=== PATIENT | female | born 1940 | race Caucasian/White ===

== ENCOUNTER 2022-02-12 12:56 | Outpatient (REF) | payer MEDICARE, SELFPAY ==
[2022-02-12 15:10] LABS: Basophils Percent Auto 0.6 % (0-2); Eosinophils Absolute Auto 0.1 X10*3/uL (0.0-0.4); Eosinophils Percent Auto 0.9 % (0-4); Hematocrit 42.4 % (37.0-47.0); Hemoglobin 14.1 g/dl (12.0-16.0); Imm Gran Abs Auto 0.01 X10*3/uL (0.00-0.03); Imm Gran Pct Auto 0.2 % (0.0-0.4); Lymphocytes Absolute Auto 1.9 X10*3/uL (1.2-4.9); Lymphocytes Percent Auto 34.3 % (20-40); MANUAL DIFF FLAG NO; Mean Corpuscular HGB Conc 33.3 g/dl (31.0-35.0); Mean Corpuscular Volume 87.1 fL (80.0-98.0); Mean Platelet Volume 10.6 fL (9.4-12.3); Monocytes Absolute Auto 0.6 X10*3/uL (0.1-1.2); Monocytes Percent Auto 10.5 % (2-11); Neutrophils Absolute Auto 2.9 x10*3/uL (2.0-8.3); Neutrophils Percent Auto 53.5 % (45-73); Platelet Count 211 X10*3/uL (160-400); Red Blood Count 4.87 X10*6/uL (4.20-5.50); Red Cell Distribution Width 14.1 % (11.0-16.0); White Blood Count 5.4 X10*3/uL (4.8-10.8)
[2022-02-12 15:53] LABS: Erythrocyte Sedimentation Rate 23 MM/HR (0-20)
[2022-02-17 17:26] LABS: Cyclic Citrullinated Peptide <16 UNITS
== END 2022-02-12 12:57 | disposition home or self-care (01) ==
LOC: HO.LAB 12:56
PROVIDERS: PCP Internal Medicine; Visit Provider Student in an Organized Health Care Education/Training Program
DX: M19.012 Primary osteoarthritis, left shoulder (principal); M19.011 Primary osteoarthritis, right shoulder; G89.29 Other chronic pain; R70.0 Elevated erythrocyte sedimentation rate; Z79.899 Other long term (current) drug therapy; Z96.611 Presence of right artificial shoulder joint
CPT/HCPCS: 36415; 85025; 85652; 86200; 99202

== ENCOUNTER → 2022-02-26 13:30 | Outpatient (BNVA) | payer MEDICARE, SELFPAY | PROVIDERS: PCP Internal Medicine; Visit Provider Student in an Organized Health Care Education/Training Program | DX: M25.511 Pain in right shoulder (principal); M25.512 Pain in left shoulder; G89.29 Other chronic pain | CPT/HCPCS: 99212 ==

== ENCOUNTER 2023-09-14 13:20 | Outpatient (AMB) | payer MEDICARE, SELFPAY ==
--- NOTE | 2023-09-14 13:36 | MHC.OFFVIS ---
Intake Vital Signs 09/14/23 13:53 Height 5 ft 3 in Weight 162 lb 6 oz BMI 28.8 BP 132/70 Blood Pressure Location Lt brachial Position Sitting Pulse 60 Pulse Source Pulse Oximeter Pulse Oximetry (%) 96 Oxygen Delivery Method Room Air Intake Visit Reasons: E-ANESTHESIOLOGY FACULTY: Recent Stroke/ ? Embolic-Conf Intake Note: Patient presents for recent stroke. Wondering where the blood clot came from. Allergies latex Adverse Reaction (Intermediate, Verified 09/14/23 13:44) Rash PFSH Medical History (Updated 09/14/23 @ 13:52 by Melisa Johnson CMA) Pacemaker Dyslipidemia Hypertension Breast cancer Surgical History H/O mammogram Hx of total knee replacement History of total hysterectomy with bilateral salpingo-oophorectomy (BSO) H/O shoulder surgery H/O foot surgery H/O total mastectomy of right breast Family History Mother Cataract Coronary artery disease Breast cancer Father Coronary artery disease Brother Colon cancer Sister Hx of CABG Social History Household Members Other:: lives alone Housing: House Are you a primary manager intensive care unit to a significant other at home: No Do you presently have visiting nurse or other home services: Yes (Light towel sewer, meals on wheels) 75 years or older and lives alone: Yes Alcohol intake: never Patient Tobacco Use Status: Never used Tobacco e-Cigarette/Vaping Use: Never Used service: No Current occupational status: retired 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
[2023-09-14 13:53] VITALS: BP 132/70; PULSE 60; O2SAT 96; BMI 28.8
--- NOTE | 2023-09-14 13:59 | MHC.OFFVIS ---
Intake Vital Signs 09/14/23 13:53 Height 5 ft 3 in Weight 162 lb 6 oz BMI 28.8 BP 132/70 Blood Pressure Location Lt brachial Position Sitting Pulse 60 Pulse Source Pulse Oximeter Pulse Oximetry (%) 96 Oxygen Delivery Method Room Air Intake Visit Reasons: E-JEWELRY POLISHER: Recent Stroke/ ? Embolic-Conf Allergies latex Adverse Reaction (Intermediate, Verified 09/14/23 13:44) Rash HPI HPI Comments History of Present Illness Details handed 83-yr-old female presents for neurological evaluation. Pt had [facility] admission May 13- May 16, 2023. Per PCP note, pt had a 3 hr period of global amnesia, feeling not right, felt like she would pass out. CTA Head and Neck- showed no significant stenosis Echocardiogram showed EF 55-65% and mild aortic stenosis. Brain MRI w/o showed: 1. several punctate foci of acute/subacute ischemia are seen in the supratentorial brain, bilateral cerebellum, and most prominently in the left thelma. Distribution suggests embolic etiology. 2. Otherwise, scattered foci of T2 signal abnormality in the supratentorial white matter and patchy T2 signal abnormality in the thelma is most likely related to chronic microvascular ischemic change. Labs- 05/14/23 04:16 Cholesterol 142 Triglycerides 56 HDL Cholesterol 56 LDL Cholesterol 75 Non HDL Cholestero l 86 Her symptoms resolved during her hospital stay. 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 Was discharged on Plavix and ASA and advised to have 30-day holter. She had another [facility] ER veal in early May- had occipital to frontal head pain. Dx was migraine. She denies h/o migraine, but thinks maybe it was d/t her chronic neck tightness and cervical spinal stenosis. Head CT showed no acute findings, single small lacunar infarcts bilaterally which is old and stable left sphenoid sinus disease. Head and Nect CTA- shows no significant stenosis Had Holter Monitor in Jun 2023- detected a-fib, and was then evaluated in [facility] ER. She was started on Eliquis. Has since had pacemaker implant. Pt is now being f/b [facility], [facility] and [facility] clinics- has f/u appt pending. Since those hospitalization, pt states she is feeling better. She had home NSG, PT- which just stopped. Pt lives at home alone, has family support. Patient also endorses: Occasional head tremor Right 5th-4th finger numbness- pt states s/p right mastectomy, right axilla radiation (2011), and/or right shoulder repair, BUE upper arm acheness. Chronic neck, back, joint arthritic pain. Some numbness and tingling in her toes- she attributes this to arthritis- her mother had this too. She has difficulty walking- balance is off, needs to use a walker. Too unsteady to use a cane. Has some urinary incontinence- mostly urge incontinence. She sleeps well. Not sure if she snores. May take a cat nap during the day. Denies nocturnal gasping, SOB, chest pain. She has some STM difficulties- has to write things down- which helps. Denies repeating herself. May forget where she put something. Pays her own bills. Has meals on wheels for lunches. She has not been driving. She manages her own medications. Her family helps w/ grocery shopping. And patient denies: Weakness. [facility] Medical History (Updated 09/27/23 @ 13:47 by REE Garcia) GERD (gastroesophageal reflux disease) Osteoporosis Depression Pacemaker Dyslipidemia Hypertension Breast cancer Surgical History H/O mammogram Hx of total knee replacement History of total hysterectomy with bilateral salpingo-oophorectomy (BSO) H/O shoulder surgery H/O foot surgery H/O total mastectomy of right breast Family History Mother Cataract Coronary artery disease Breast cancer Father Coronary artery disease Brother Colon cancer Sister Hx of CABG Social History Household Members Other:: lives alone Housing: House Are you a primary animal care specialist to a significant other at home: No Do you presently have visiting nurse or other home services: Yes (Light e tailer, meals on wheels) 75 years or older and lives alone: Yes Alcohol intake: never Patient Tobacco Use Status: Never used Tobacco e-Cigarette/Vaping Use: Never Used service: No Current occupational status: retired 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 Mild intermittent head tremor. Mild posterior cervical tightness. Negative pronator drift- in right arms, fingers abduct during testing. Negative- BUE Tinnel, Phalen, Medial compression tests. Stands slowly, steady gait w/ walker. General: CN's II-XI intact bilaterally and deep tendon reflexes 2+ bilaterally Cranial nerves: Yes Bilaterally intact EOM present and Yes Nystagmus not present Motor exam (neuro): 5/5 motor strength present throughout Psych Appearance: grossly normal Mental Status: mental status grossly normal Affect: normal affect Attitude: cooperative Results Reviewed Results Reviewed: 05/14/23, ?MRI Brain W/O Contrast MRI Brain W/O Contrast INDICATION: Visual impairment. TECHNIQUE: MRI of the brain was performed without contrast utilizing sagittal T1, axial T2, axial FLAIR, axial SWAN, and axial DWI sequences. COMPARISON: CT head and CTA of the head and neck, 05/13/2023. FINDINGS: BRAIN and EXTRA-AXIAL SPACES: Punctate foci restricted diffusion are seen in the subcortical white matter of the left occipital pole, lateral right temporal lobe, left caudate head, and most prominently in the left anterior thelma. A few foci are also seen in both cerebellar hemispheres. Otherwise, there is prominence of the ventricles and sulci compatible with age-appropriate volume loss. Multiple scattered foci of T2 prolongation are seen elsewhere in the supratentorial white matter. Prominent patchy T2 prolongation is also seen in the central thelma. There is no hemorrhage, midline shift, or mass effect. No extra collection is seen. Flow voids are preserved in the dominant intracranial vessels. EXTRACRANIAL SOFT TISSUES: There have been lens replacements bilaterally. There is complete opacification of the left sphenoid sinus. Fluid is seen in the bilateral mastoid air cells, left greater than right. BONES: Marrow signal is preserved. IMPRESSION: 1. Several punctate foci of acute/subacute ischemia are seen in the supratentorial brain, bilateral cerebellum, and most prominently in the left thelma. Distribution suggests embolic etiology. 2. Otherwise, scattered foci of T2 signal abnormality in the supratentorial white matter and patchy T2 signal abnormality in the thelma is most likely related to chronic microvascular ischemic change. Assessment & Plan Assessment & Plan (1) History of CVA (cerebrovascular accident): Comment: Apr 2023- Brain MRI several punctate foci of acute/subacute ischemia are seen in the supratentorial brain, bilateral cerebellum, and most prominently in the left thelma. As well as chronic microvascular ischemic change Code(s): Z86.73 - Personal history of transient ischemic attack (TIA), and cerebral infarction without residual deficits (2) Atrial fibrillation: Code(s): I48.91 - Unspecified atrial fibrillation (3) Difficulty balancing: Code(s): R29.818 - Other symptoms and signs involving the nervous system Plan Reviewed PCP and [facility] reports and imaging. Reviewed how a-fib increases risk for embolic stroke. BP currently normotensive. Lipids- WNL Discussed importance of continuing to optimize/reduce her CV risk factors: Continue current anti-HTN regimen, BB, Eliqis, statin tx. F/u w/ cardiology. Continue regular physical activity. Use walker per PT advise- selina as pt is now on Eliquis. Continue socialization and cognitively stimulating activities. Pt has low risk factors for sleep apnea, however offered sleep study to assess for undiagnosied sleep apnea as this can be a/w a-fib and stroke risk. Pt declines at this time. Monitor headache Follow-up in 6 months or sooner. Coding Level of Care Code New Pt Level 4 (45745) Diagnoses History of CVA (cerebrovascular accident) Z86.73 Atrial fibrillation I48.91 Difficulty balancing R29.818
== END 2023-09-14 14:54 | disposition home or self-care (01) ==
PROVIDERS: PCP Internal Medicine; Visit Provider Nurse Practitioner Family
DX: Z86.73 Personal history of transient ischemic attack (TIA), and cerebral infarction without residual deficits (principal); I48.91 Unspecified atrial fibrillation; R29.818 Other symptoms and signs involving the nervous system
CPT/HCPCS: 99204

== ENCOUNTER → 2023-09-14 13:20 | Outpatient (BNVA) | payer MEDICARE, SELFPAY | PROVIDERS: PCP Internal Medicine; Visit Provider Nurse Practitioner Family | DX: I48.91 Unspecified atrial fibrillation (principal); R29.818 Other symptoms and signs involving the nervous system; Z86.73 Personal history of transient ischemic attack (TIA), and cerebral infarction without residual deficits | CPT/HCPCS: 99202 ==

== ENCOUNTER 2024-09-14 14:20 | Outpatient (AMB) | payer MEDICARE, SELFPAY ==
--- NOTE | 2024-09-14 14:22 | A.OFFVIS_ITS ---
Vital Signs 09/14/24 14:24 Height 5 ft 3 in Weight 163 lb BMI 28.9 BP 126/74 Blood Pressure Location Rt brachial Position Sitting Intake Visit Reasons: Follow up Recent Stroke/? Embolic Intake Note: Patient presents follow up CVA Allergies latex Adverse Reaction (Intermediate, Verified 09/14/24 14:25) Rash Medication List - Last Reconciled 09/14/24 by REE Garcia acetaminophen (Tylenol Extra Strength) 1,000 mg PO BID amlodipine 5 mg PO DAILY amlodipine 5 mg PO DAILY amoxicillin 1,000 mg PO BID apixaban (Eliquis) 5 mg PO BID calcium carbonate-vitamin D3 600 mg-10 mcg (400 unit) (Calcium 600 + D(3)) 1 tab PO BID famotidine 20 mg PO BID levothyroxine 50 mcg PO DAILY metoprolol tartrate 50 mg PO DAILY uilitaxm-sqm-abea-FA-vit K-lut 8 mg iron-400 mcg-50 mcg (Centrum Silver Women) 1 tab PO DAILY omeprazole 20 mg PO DAILY simvastatin 20 mg PO DAILY venlafaxine 75 mg PO DAILY venlafaxine ER 75 mg PO DAILY vitamins A,C,N-siem-dspurv 2,148 mcg-113 mg-45 mg-17.4mg (PreserVision AREDS) 1 tab PO DAILY HPI Comments Details: Right-handed 83-yr-old female presents for follow-up s/p CVA in setting of a- fib. Patient denies any significant interval history changes. Reports her metoprolol dose was increased to mange her BP- which is normotensive. She is followed by cardiology. Patient denies any interval stroke-like symptoms. Pt denies falls. States she can be off-balance at times, briefly, but taking her time, and using her walker, cane , or walks with someone. Doing some exercises. States her memory is ok. States she is able to manage her finances ok. She has resumed driving, just short distances to the pharmacy and grocery store- someone is usually w/ her. no near accidents. BUE chronic achiness, RUE 5th finger numbness s/p right shoulder repair. Sleeping ok- some nocturia, but denies parasomnias. Denies bothersome headaches- has an occasional ocular migraine lasts minutes w/o headache- just has to sit and close her eyes and relaxes and they self resolve. Denies head tremor. Denies other tremor. Does endorse chronic arthritis and right 3rd finger tightness/sustained flexion. 09/14/2023 initial HPI: Pt had [facility] admission May 13- May 16, 2023. Per PCP note, pt had a 3 hr period of global amnesia, feeling not right, felt like she would pass out. CTA Head and Neck- showed no significant stenosis Echocardiogram showed EF 55-65% and mild aortic stenosis. Brain MRI w/o showed: 1. several punctate foci of acute/subacute ischemia are seen in the supratentorial brain, bilateral cerebellum, and most prominently in the left thelma. Distribution suggests embolic etiology. 2. Otherwise, scattered foci of T2 signal abnormality in the supratentorial white matter and patchy T2 signal abnormality in the thelma is most likely related to chronic microvascular ischemic change. Labs- 05/14/23 04:16 Cholesterol 142 Triglycerides 56 HDL Cholesterol 56 LDL Cholesterol 75 Non HDL Cholesterol 86 Her symptoms resolved during her hospital stay. 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 Was discharged on Plavix and ASA and advised to have 30-day holter. She had another [facility] ER veal in early May- had occipital to frontal head pain. Dx was migraine. She denies h/o migraine, but thinks maybe it was d/t her chronic neck tightness and cervical spinal stenosis. Head CT showed no acute findings, single small lacunar infarcts bilaterally which is old and stable left sphenoid sinus disease. Head and Nect CTA- shows no significant stenosis Had Holter Monitor in Jun 2023- detected a-fib, and was then evaluated in [facility] ER. She was started on Eliquis. Has since had pacemaker implant. Pt is now being f/b [facility], [facility] and [facility] clinics- has f/u appt pending. Since those hospitalization, pt states she is feeling better. She had home NSG, PT- which just stopped. Pt lives at home alone, has family support. Patient also endorses: Occasional head tremor Right 5th-4th finger numbness- pt states s/p right mastectomy, right axilla radiation (2011), and/or right shoulder repair, BUE upper arm acheness. Chronic neck, back, joint arthritic pain. Some numbness and tingling in her toes- she attributes this to arthritis- her mother had this too. She has difficulty walking- balance is off, needs to use a walker. Too unsteady to use a cane. Has some urinary incontinence- mostly urge incontinence. She sleeps well. Not sure if she snores. May take a cat nap during the day. D enies nocturnal gasping, SOB, chest pain. She has some STM difficulties- has to write things down- which helps. Denies repeating herself. May forget where she put something. Pays her own bills. Has m eals on wheels for lunches. She has not been driving. She manages her own medications. Her family helps w/ grocery shopping. And patient denies: Weakness. [facility] Medical History (Updated 09/14/24 @ 20:30 by REE Garcia) GERD (gastroesophageal reflux disease) Osteoporosis Depression Pacemaker Dyslipidemia Hypertension Breast cancer Surgical History H/O mammogram Hx of total knee replacement History of total hysterectomy with bilateral salpingo-oophorectomy (BSO) H/O shoulder surgery H/O foot surgery H/O total mastectomy of right breast Family History Mother Cataract Coronary artery disease Breast cancer Father Coronary artery disease Brother Colon cancer Sister Hx of CABG Social History Household Members Other:: lives alone Housing: House Are you a primary animal care assistant to a significant other at home: No Do you presently have visiting nurse or other home services: Yes (Light heading and priming tool setter, meals on wheels) 75 years or older and lives alone: Yes Alcohol intake: never Patient Tobacco Use Status: Never used Tobacco e-Cigarette/Vaping Use: Never Used service: No Current occupational status: retired 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 Mild intermittent right 5th finger postural tremor. Archana hand arthritic changes- right 3rd finger tightness/flexion. Mild posterior cervical tightness. Negative pronator drift Stands slowly, steady gait w/ cane General: CN's II-XI intact bilaterally and deep tendon reflexes 2+ bilaterally Cranial nerves: Yes Bilaterally intact EOM present and Yes Nystagmus not present Motor exam (neuro): 5/5 motor strength present throughout Psych Appearance: grossly normal Mental Status: mental status grossly normal Affect: normal affect Attitude: cooperative Assessment & Plan Assessment & Plan (1) History of CVA (cerebrovascular accident): Comment: Apr 2023- Brain MRI several punctate foci of acute/subacute ischemia are seen in the supratentorial brain, bilateral cerebellum, and most prominently in the left thelma. As well as chronic microvascular ischemic change Code(s): Z86.73 - Personal history of transient ischemic attack (TIA), and cerebral infarction without residual deficits Category: Medical (2) Atrial fibrillation: Code(s): I48.91 - Unspecified atrial fibrillation Category: Medical (3) Difficulty balancing: Comment: improved Code(s): R29.818 - Other symptoms and signs involving the nervous system Category: Medical Plan Pt has made positive gains. Discussed importance of continuing to optimize/reduce her CV risk factors: BP currently normotensive. Continue current anti-HTN regimen, BB, Eliqis, statin tx. F/u w/ cardiology. Continue regular physical activity. Use cane and walker.. Continue socialization and cognitively stimulating activities. Pt continues to deny snoirng, sleep behaviors- pt is not currently interested in furtehr assessing sleep. Monitor sleep- consider HST/PSG if worsens. Monitor migraine visual aura w/o headache. Monitor head tremor Follow-up in 12 months or sooner prn. Coding Level of Care Code Est Pt Level 4 (74733) Diagnoses History of CVA (cerebrovascular accident) Z86.73 Atrial fibrillation I48.91 Difficulty balancing R29.818
[2024-09-14 14:24] VITALS: BP 126/74; BMI 28.9
--- OUTSIDE RECORDS SUMMARY | 2024-09-14 15:50 | XMS_ITS | Clinical Summary ---
Author Organization [facility] Address [address] [place] [address] Care Team Providers Care Automatic Trimming Sewer Name Role Phone Krissy Guardado MD Primary Care Provider [phone] Allergies Active Allergy Reactions Criticality Noted Date Comments Latex 04/20/2017 Medications Medication Sig Dispensed Refills Start Date End Date Status acetaminophen (TYLENOL) 325 MG tablet Take 2 tablets (650 mg total) by mouth every 6 (six) hours as needed for pain. 0 Active amLODIPine (NORVASC) tablet 5 mg Take 1 tablet (5 mg total) by mouth daily. 0 Active simvastatin (ZOCOR) tablet 20 mg Take 1 tablet (20 mg total) by mouth every night at bedtime. 0 Active venlafaxine (EFFEXOR-XR) 150 MG 24 hr capsule Take 1 capsule (150 mg total) by mouth daily. 0 Active levothyroxine (SYNTHROID, LEVOXYL) tablet 50 mcg Take 1 tablet (50 mcg total) by mouth every morning on an empty stomach. 0 Active metoprolol succinate (TOPROL-XL) 24 hr tablet 50 mg Take 1 tablet (50 mg total) by mouth daily. 0 Active omeprazole (PRILOSEC) 20 MG capsule Take 1 capsule (20 mg total) by mouth daily. 0 Active Multiple Vitamin (MULTI VITAMIN DAILY PO) Take by mouth. 0 Active CALCIUM-VITAMIN D PO Take by mouth daily. 0 Active metoprolol tartrate (LOPRESSOR) 50 MG tablet Take 1 tablet (50 mg total) by mouth 2 (two) times a day. Take 1 tablet 50mg in the morning and 25mg in evening 0 Active AMOXICILLIN PO Take by mouth. For dental work only 0 Active Multiple Vitamins-Minerals (PRESERVISION AREDS PO) Take by mouth daily. 0 Active apixaban (ELIQUIS) 5 MG TABS tablet Take by mouth every 12 (twelve) hours. 0 Active famotidine (PEPCID) 20 MG tablet Take 1 tablet (20 mg total) by mouth 2 (two) times a day. 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, estrogen receptor positive 04/30/2017 Rotator cuff tear 04/08/2016 Overview: Overview: right Bunion of great toe 09/12/2015 PVD (peripheral vascular disease) 09/12/2015 Hypothyroidism 06/03/2015 Radiculitis, cervical 12/02/2010 History of endometrial cancer 10/24/2009 Overview: Overview: Status post hysterectomy and BSO over 5 years ago no evidence of recurrence HTN (hypertension), benign 10/24/2009 Hyperlipidemia 10/24/2009 MDD (major depressive disorder) 10/24/2009 Overview: Overview: Presently well controlled Total knee replacement status 10/24/2009 Overview: Overview: Right knee 01/27; left 08/28 Family History Medical History Relation Name Comments Cancer Brother 1 Suicidality Brother 1 Cancer Brother 2 colon Cancer Mother breast Relation Name Status Comments Brother 1 Brother 2 Brother 3 Alive Father Mother Social History Tobacco Use Types Packs/Day Years Used Date Smoking Tobacco: Never Smokeless Tobacco: Never Alcohol Use Standard Drinks/Week Comments Yes 0 (1 standard drink = 0.6 oz pur e alcohol) Sex and Gender Information Value Date Recorded Sex Assigned at Not on file Gender Identity Not on file Sexual Orientation Not on file Job Start Date Occupation Industry Not on file Not on file Not on file Last Filed Vital Signs Vital Sign Reading Time Taken Comments Blood Pressure 129/60 09/02/2023 1:16 PM EDT Pulse 59 09/02/2023 1:16 PM EDT Temperature 36.5 ??C (97.7 ??F) 09/02/2023 1:16 PM ED T Respiratory Rate - - Oxygen Saturation 99% 09/02/2023 1:16 PM EDT Inhaled Oxygen Concentration - - Weight 73 kg (161 lb) 09/02/2023 1:16 PM EDT Height 160 cm (5' 3 ) 07/03/2020 1:47 PM EST Body Mass Index 28.52 07/03/2020 1:47 PM EST Plan of Treatment Health Maintenance Due Date Last Done Comments COVID-19 Vaccine (#1) 02/20/1945 Depression Screening 1951 Preventative Health Evaluation 1957 DTap / Tdap / Td (1 - Tdap) 1958 Shingrix-Zoster Vaccine (1 of 2) 1958 Fall Risk Assessment 02/20/2004 Osteoporosis Screening (DEXA Scan) 02/20/2004 RSV Adult > 60+ Yrs or (1 - 1-dose 75+ series) 2014 Influenza Vaccine (#1) 2024 , 03/10/2022, 03/17/2021, Additional history exists Pneumococcal Vaccine Completed 06/03/2015, 04/02/20 10 Hepatitis B Vaccines Aged Out No long er eligible based on patient's age to complete this topic RSV Ped < 20 months Aged Out No longe r eligible based on patient's age to complete this topic Care Teams Automatic Trimming Sewer Relationship Specialty Start Date End Date Krissy Guardado MD PCP - General Internal Medicine 04/20/17
--- OUTSIDE RECORDS SUMMARY | 2024-09-14 15:50 | XMS_ITS | Encounter Summary ---
Author Organization [facility] Address [address] [place] [address] Care Team Providers Care Industrial Court Magistrate Name Role Phone Krissy Guardado MD Primary Care Provider [phone] Encounter Details Date Type Department Care Team (Late st Contact Info) Description 08/15/2024 Telephone [facility] - [facility] [address] [facility] [address] [place] [address] Paige Watkins PA [address] [place] [address] Social History Tobacco Use Types Packs/Day Years Used Date Smoking Tobacco: Never Smokeless Tobacco: Never Alcohol Use Standard Drinks/Week Comments No 0 (1 standard drink = 0.6 oz pur e alcohol) Housing Instability Answer Date Recorde d Are you worried that in the next 2 months you may not have stable housing? No 05/01/2024 Food Access & Nutrition Answer Date Rec orded Do you have access to a vari ety of food including fruits and vegetables? Yes 05/01/2024 Access to Healthcare Answer Date Record ed Within the last 3 months, ho w many times did you visit the emergency department for your medical care? 0 05/01/2024 Health Literacy Answer Date Recorded How often do you need to hav e someone help you when you read instructions, pamphlets, or other written material from your doctor or pharmacy? Never 05/01/2024 Caregiver: How often do you need to have someone help you when you read instructions, pamphlets, or other written material from your doctor or pharmacy? Not on file 05/01/2024 Financial Risk Answer Date Recorded How hard is it for you to pa y for the very basics like food, housing, medical care, and air conditioning / heating? Somewhat hard 05/01/2024 Transportation Answer Date Recorded Has the lack of transportati on kept you from meetings, work, or from getting things needed for daily living? No Has the lack of transportati on kept you from medical appointments or from getting medications? No 05/01/2024 Social Isolation Answer Date Recorded How often do you feel lonely or isolated from th ose around you? Rarely 05/01/2024 Food Risk Answer Date Recorded Within the past 12 months we worried whether our food would run out before we got money to buy more. Never true 05/01/2024 Within the past 12 months th e food we bought just didn't last and we didn't have money to get more. Never true 05/01/2024 Dependent Care Answer Date Recorded Do you need help finding or paying for care for your loved ones. For example, child care coordinator or elderly care for an older adult? No 05/01/2024 Education Answer Date Recorded Do you think completing more education or training, like finishing a GED, going to college, or learning a trade, would be helpful for you? No 05/01/2024 Employment and Income Answer Date Recor ded During the last four weeks, have you been actively looking for work? No 05/01/2024 Living Situation Answer Date Recorded What is your living situation? 1 07/01/2023 Comments Unknown Sex and Gender Information Value Date Recorded Sex Assigned at Not on file Legal Sex Female 3:34 PM EST Gender Identity Not on file Sexual Orientation Not on file documented as of this encounter Progress Notes * MEDINA Bush - 08/15/2024 10:49 AM EST See MURJ encounter titled Ancillary Procedure, report may be found under media, dated: Current egm - afib ongoing since 08/13 - rate controlled Prior episodes - A-fib 3 hours and 20 minutes on July 31 at 3:50 AM, 3 hours and 18 minutes August 02 at 3 AM Patient is anticoagulated for stroke reduction-Eliquis 5 mg twice daily Any plan for rhythm control? If not we will only report RVR. Please let device clinic know. documented in this encounter Plan of Treatment Upcoming Encounters Date Type Department Care Team (Late st Contact Info) Description 10/05/2024 1:45 PM EDT Office Visit Orthopedic Surgery - [place] [address] [facility] [address] [place] [phone] Delroy Villarreal, DPMichelle 175 [facility] [address] [place] [address] 10/23/2024 1:00 PM EDT Appointment Radiology Department - [address] [phone] 11/01/2024 2:15 PM EDT Office Visit Adult Medicine [address] [phone] Krissy Guardado MD [address] [place] [address] 03/20/2025 1:30 PM EDT Office Visit [facility] [address] [place] [address] Michael Teran MD [address] [place] [address] [address] [place] [address] 08/09/2025 1:00 PM EST Ancillary Procedure [facility] [address] [place] [phone] documented as of this encounter Visit Diagnoses Not on filedocumented in this encounter Additional Health Concerns Assessment Noted Time PHQ-9 Depression Total Score: 0 05/01/20 3:36 PM EST A fall risk assessment has been complete d for the patient 05/01/2024 3:32 PM EST documented as of this encounter Care Teams Industrial Court Magistrate Relationship Specialty Start Date End Date Krissy Guardado MD [address] [place] [address] PCP - General Internal Medicine 02/25/15 documented as of this encounter
--- OUTSIDE RECORDS SUMMARY | 2024-09-14 15:50 | XMS_ITS | Encounter Summary ---
Author Organization [facility] Address [id number] [place] [phone] Care Team Providers Care Product Development Specialist Name Role Phone Krissy Guardado MD Primary Care Provider [phone] Reason for Referral * Consultation (Routine) - Authorized Specialty Diagnoses / Procedures Referred By Contac t Referred To Contact Neurology Diagnoses Cerebral infarction, unspecified mechanism (CMS/HCC) Krissy Guardado MD [address] [place] [address] Phone: tel: fax: Yaneth Flowers FNP Phone: tel: fax: Referral ID Status Reason Start Date Expiration Date Visits Requested Visits Authorized [id number] Authorized Specialty Services Required 08/24/2024 08/24/2025 6 6 Reason for Visit * Reason Onset Date Comments Referral 08/22/2024 Cerebral Infarct ion unspecified Encounter Details Date Type Department Care Team (Late st Contact Info) Description 08/22/2024 Telephone Adult Medicine [facility] [address] [place] [phone] Krissy Guardado MD [address] [place] [phone] Referral (Cerebral Infarction unspecified) Social History Tobacco Use Types Packs/Day Years [...] for your loved ones. For example, child advocate or elderly care for an older adult? [...] as of this encounter Progress Notes * Sima Holbrook - 08/22/2024 2:50 PM EDT Referral Request: What insurance does the patient have today? [employer] Referrals cannot be processed if the insurance is not accurate. If the insurance listed above in red is NO BILLING INFORMATION FOUND FOR THIS ENCOUTNER The patients correct insurance must be obtained and registered in [facility] or their referral can not be processed. Is this a retro request? no. If yes for what date of service do you need the retro referral? not applicable Who is calling to request this referral? Pt's daugther If the caller is not the patient, what is their name? Lupe Brunner Ask the patient WHO referred them to this specialty: Not an initial visit; it is for follow up/continuation of care. Patients PCP is Krissy Guardado FIRST and LAST NAME of SPECIALIST PATIENT is seeing: Yaneth Flowers What specialty is this? Neurology DIAGNOSIS Patient is being seen for (Not a body part or a procedure): Cerebral Infarction unspecified Have you seen this SPECIALIST for this PROBLEM/DX before? If YES, when? Yes. 2023 Have you checked REVIEW or the APPT DESK to see if this referral has already been done or has visits left? yes Is this visit: Follow Up Address of Specialist: [address] [place] [address] Phone # of Specialist: [phone] Fax #: (if applicable): Does patient have an appointment scheduled?: yes Date of appointment- (including a retro-request): 09/14/2024 6-visits Is this appointment related to: Not MVA, worker compensation, or surgery related documented in this encounter Plan of Treatment Upcoming Encounters Date Type Department Care Team (Late st Contact Info) Description 10/05/2024 1:45 PM EDT Office Visit Orthopedic Surgery - [place] [address] [facility] [address] [place] [phone] Delroy Villarreal, MARYBETH 175 [facility] 250 [place] [address] 10/23/2024 1:00 PM EDT Appointment Radiology Department - [address] [phone] 11/01/2024 2:15 PM EDT Office Visit Adult Medicine [address] [phone] Krissy Guardado MD [address] [place] [address] 03/20/2025 1:30 PM EDT Office Visit [facility] Cardiology [facility] [address] [place] [phone] Michael Teran MD [address] [place] [address] [address] [place] [address] 08/09/2025 1:00 PM EST Ancillary Procedure [facility] [address] [facility] [address] [place] [phone] Scheduled Referrals Name Type Priority Associated Diagnoses Order Schedule Ambulatory referral to Neurology Outpatient Referral Routine Cerebral infarction, unspecified mechanism (CMS/HCC) 1 Occurrences starting 08/22/2024 until 08/22/2025 documented as of this encounter Visit Diagnoses Diagnosis Cerebral infarction, unspecified mechanism (CMS/HCC)- Primary Encounter for screening mammogram for breast cancer Encounter for adjustment or management of cardiac device documented in this encounter Additional Health Concerns Assessment Noted Time PHQ-9 Depression Total Score: 0 05/01/20 24 3:36 PM EST A fall risk assessment has been complete d for the patient 05/01/2024 3:32 PM EST documented as of this encounter Care Teams Product Development Specialist Relationship Specialty Start Date End Date Krissy Guardado MD [address] [place] [id number] PCP - General Internal Medicine 02/25/15 documented as of this encounter
--- OUTSIDE RECORDS SUMMARY | 2024-09-14 15:50 | XMS_ITS | Clinical Summary ---
Author Organization [facility] [address] [facility] Address [address] [place], [place] Phone Care Team Providers Care Obgyn Specialist Name Role Phone Krissy Guardado MD Primary Care Provider [phone] Allergies Active Allergy Reactions Criticality Noted Date Comments Latex Rash 12/25/2009 Medications fluocinolone and shower cap 0.01 % oil PLEASE SEE ATTACHED FOR DETAILED DIRECTIONS 12/23/19 23 Active acetaminophen (Tylenol Extra Strength) 500 mg tablet Take by mouth as needed. Active vit A/vit C/vit E/zinc/copper (PRESERVISION AREDS ORAL) Take 1 Cap by mouth daily. Active multivit-min/i uli/FA/vit K/lut (CENTRUM SILVER WOMEN ORAL) Take by mouth 1 (one) time each day. Active calcium carbonate/eddie min D3 (CALCIUM 600 + D,3, ORAL) 1 tab bid Active amoxicillin (AMOXIL) 500 mg tablet Take 4 tablets 1 hr prior to dental work 12 tablet 05/02/20 24 Active amLODIPine (NORVASC) 5 mg tablet TAKE 1 TABLET BY MOUTH EVERYDAY AT BEDTIME 90 tablet 1 06/01/20 24 Active venlafaxine XR (EFFEXOR-XR) 75 mg 24 hr capsule Take 1 capsule (75 mg total) by mouth 1 (one) time each day. 90 capsule 1 06/19/19 25 Active simvastatin (ZOCOR) 20 mg tablet Take 1 tablet (20 mg total) by mouth every other day. 45 tablet 1 07/05/19 25 Active metoprolol tartrate (LOPRESSOR) 50 mg tablet Take 1 tablet (50 mg total) by mouth 1 (one) time each day in the morning AND 1 tablet (50 mg total) at bedtime. 135 tablet 1 07/07/19 25 Active levothyroxine (SYNTHROID, LEVOTHROID) 50 mcg tablet Take 1 tablet (50 mcg total) by mouth 1 (one) time each day before breakfast. 90 tablet 1 07/07/19 25 Active apixaban (ELIQUIS) 5 mg tablet Take 5 mg by mouth 2 times daily. 180 tablet 2 07/18/19 25 Active famotidine (PEPCID) 20 mg tablet Take 1 tablet (20 mg total) by mouth every 12 (twelve) hours. 180 tablet 09/08/19 25 Active famotidine (PEPCID) 20 mg tablet Take 1 tablet (20 mg total) by mouth 2 (two) times a day. 180 tablet 06/12/20 24 025 Discontinued Active Problems Problem Noted Date Diagnosed Date Atrial fibrillation 07/15/2023 Overview (03/10/2024): Last Assessment & Plan: During the patient's hospitalization, she was noted to have episodes of atrial fibrillation and atrial flutter as well as tachybradycardia syndrome. She underwent pacemaker placement. She was also started on apixaban 5 mg orally twice daily based on her age, weight, and kidney function. She is a [id number] score of 6. She denies any abnormal bleeding. She did have significant bruising after her pacemaker placement, however this has ultimately resolved. She denies any blood in her urine or stool. She continues on beta-crow with metoprolol and heart rate today is 65 bpm. Will continue to monitor her atrial fibrillation/atrial flutter burden on her device. 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 Will continue to monitor with periodic echocardiograms. Osteopenia 01/03/2018 Rotator cuff tear 04/08/2016 Overview (03/10/2024): right Bunion of great toe 09/12/2015 Hammer toe, acquired 09/12/2015 PVD (peripheral vascular disease) 09/12/2015 Hypothyroidism 06/03/2015 Radiculitis, cervical 12/02/2010 GERD (gastroesophageal reflux disease) 0 HTN (hypertension), benign 10/24/2009 Overview (03/10/2024): Last Assessment & Plan: Patient's blood pressure is acceptable today. She will continue her current antihypertensive medication regimen as prescribed. Hyperlipidemia 10/24/2009 Overview (03/10/2024): Last Assessment & Plan: The patient has a history of hyperlipidemia and continues on simvastatin as prescribed. Her last fasting lipid panel showed acceptable cholesterol control. Will continue current therapies I have reviewed with the patient the importance of a heart healthy lifestyle which includes eating a low-fat low-salt diet, getting regular exercise, maintaining a healthy weight, not smoking, and following up with routine medical care. MDD (major depressive disorder) 10/24/2009 Overview (03/10/2024): Presently well controlled Resolved Problems Problem Noted Date Diagnosed Date Resolved Date Pacemaker 07/10/2023 03/10/2024 Overview (03/10/2024): 07/07 dual chamber pacemaker placed, tachy odell syndrome MRI compatible Last Assessment & Plan: The patient has a history of tachybradycardia syndrome and underwent pacemaker placement June 2023. Will continue with remote device checks in the device clinic. Encounters Date Type Department Care Team Description 09/05/2024 Telephone Adult Medicine [address] [phone] Krissy Guardado MD Fitting for DME (Mastectomy Bras/) 08/22/2024 Telephone Adult Medicine [address] [phone] Krissy Guardado MD Referral (Cerebral Infarction unspecified) 08/15/2024 11:00 AM EST Ancillary Procedure [facility] Cardiology [facility] [address] [place] [address] 08/15/2024 Telephone [facility] [address] [facility] [address] [place] [address] Paige Watkins PA 08/08/2024 2:30 PM EST Ancillary Procedure [facility] [address] [facility] [address] [place] [address] Encounter for adjustment or management of cardiac device; Atrial fibrillation, unspecified type ([facility]) 08/03/2024 1:15 PM EST Office Visit Orthopedic Surgery - [place] [address] [facility] [address] [place] [phone] Delroy Villarreal, DPM Bunion of great toe (Primary Dx); Hammertoes of both feet; Arthritis of both feet; Ingrown right big toenail; Pain in toes of both feet 08/02/2024 10:15 AM EST Ancillary Procedure [facility] [address] [facility] [address] [place] [address] 07/20/2024 Telephone Adult Medicine [address] [phone] Jazz Holm LPN Referral from Last 3 Months Immunizations Name Administration Dates Next Due Influenza Quadravalent, 0.5m l (Fluad) 65yo and older 03/17/2021 Influenza trivalent, 0.5mL ( Fluad) 65yo and older 05/01/2024 Influenza trivalent, 0.5mL ( Fluzone High-dose) 65yo and older 04/21/2023,03/10/2022,03/17/2021,02/27,04/04/2019,03/20/2018,03/03/2017 Influenza trivalent, with pr eservative (Fluzone; Afluria) 6mo and older 04/08/2016,03/11/2015,03/23/2014,03/13,04/08/2012,02/23/2011,04/02/2010 Influenza, Unspecified 03/17/2021 Moderna (age 6mo & older) Bi valent, COVID-19, 0.5 mL or 0.25 mL dosage 04/11/2022 Moderna Covid-19 Bivalent, O riginal + Ba.1 (Non-US Tradename Spikevax Bivalent) 04/11/2022 Moderna SARS-CoV-2 COVID-19, mRNA, LNP-S, preservative free 11/20/2021,08/27/2020,07/30/2020 Pneumococcal conjugate 13 va lent (Prevnar 13, PCV13) 2mo and older 06/03/2015 Pneumococcal polysaccharide 23 valent (Pneumovax 23) 2yo and older 04/02/2010 Td Tetanus diptheria (Tdvax) 7yo and older 12/25/2020,02/23/2011 Zoster Live 11/16/2013 Surgical History Surgery Date Site/Laterality Comments HYSTERECTOMY PROCEDURE: HISTORICAL TOTAL HYSTERECTOMY WITH BSO MASTECTOMY 2004 PROCEDURE: HISTORICAL MASTECTOMY; COMMENT: age 64 FOOT SURGERY PROCEDURE: HISTORICAL FOOT SURGERY; COMMENT: carlos OTHER SURGICAL HISTORY 04/2017 PROCEDURE: MAMMOGRAM TOTAL KNEE ARTHROPLASTY PROCEDURE: HISTORICAL TOTAL KNEE REPLACE; COMMENT: right 01/27; left 08/28 SHOULDER SURGERY PROCEDURE: HISTORICAL SHOULDER SURGERY; COMMENT: reverse total arthroplasty right shoulder 12/28 BREAST SURGERY 2009? Right PROCEDURE: HI UNLISTED PROCEDURE BREAST; COMMENT: RIGHT BREAST MAStECTOMY BREAST BIOPSY ? Right PROCEDURE: BX BREAST; PERC NEEDLE CORE W/IMAG GUID Medical History Medical History Date Comments Subclinical hypothyroidism 08/09/2012 DX:Chung bclinical hypothyroidism Other specified personal his tory presenting hazards to health(V15.89) DX:Other specifie d personal history presenting hazards to health(V15.89); COMMENT: endometral ca MDD (major depressive disorder) 10/24/2009 DX:MDD (major depressive disorder); COMMENT: Presently well controlled History of endometrial cancer 10/24/2009 DX :History of endometrial cancer; COMMENT: Status post hysterectomy and BSO over 5 years ago no evidence of recurrence Hypothyroidism 06/03/2015 DX:Hypothyroidis m Bunion of great toe 09/12/2015 DX:Bunion of great toe Rotator cuff tear 04/08/2016 DX:Rotator cuf f tear; COMMENT: right Total knee replacement status 10/24/2009 DX :Total knee replacement status Osteopenia 01/03/2018 DX:Osteopenia Personal history of malignan t neoplasm of breast 2009? DX:Personal history of malig nant neoplasm of breast; COMMENT: rt mastectomy Stroke (CMS/HCC) 05/24/2023 DX:Stroke (HCC) ; COMMENT: 06/05 multiple small embolic infarcts Pacemaker 07/10/2023 DX:Pacemaker; CO MMENT: 07/07 dual chamber pacemaker placed, tachy odell syndrome CHB (complete heart block) (CMS/HCC) 07/15/2023 DX:CHB (complete heart block) ([facility]); COMMENT: 07/07 6 second pause, pacer placed Atrial fibrillation (CMS/HCC) 07/15/2023 DX :Atrial fibrillation (HCC) Family History Medical History Relation Name Comments Colon cancer Brother Coronary artery disease Father at 50 Breast cancer Mother 70's Cataracts Mother 70's breast cancer, CAD CABG Sister Relation Name Status Comments Brother Father Mother 70's Sister Alive Social History Tobacco Use Types Packs/Day Years Used Date Smoking Tobacco: Never Smokeless Tobacco: Never Tobacco Cessation:Counseling Given: Not Answered Alcohol Use Standard Drinks/Week Comments No 0 [...] care for your loved ones. For example, teacher early childhood development or elderly care for an older adult? [...] on file Sexual Orientation Not on file Obstetrics History Last Filed Vital Signs Vital Sign Reading Time Taken Comments Blood Pressure 94/70 05/01/2024 3:43 PM EST Pulse 69 05/01/2024 3:43 PM EST Temperature 36.1 ??C (96.9 ??F) 05/01/2024 3:43 PM ES T Respiratory Rate 14 05/01/2024 3:43 PM EST Oxygen Saturation - - Inhaled Oxygen Concentration - - Weight 74.8 kg (165 lb) 08/03/2024 1:17 PM EST Height 160 cm (5' 2.99 ) 08/03/2024 1:17 PM EST Body Mass Index 29.24 08/03/2024 1:17 PM EST Plan of Treatment Upcoming Encounters Date Type Department Care Team (Late st Contact Info) Description 10/05/2024 1:45 PM EDT Office Visit Orthopedic Surgery - [place] [address] [facility] [address] [place] [phone] Delroy Villarreal, DPM [address] [facility] [address] [place] [address] 10/23/2024 1:00 PM EDT Appointment Radiology Department - [address] [phone] 11/01/2024 2:15 PM EDT Office Visit Adult Medicine [address] [phone] Krissy Guardado MD [address] [place] [address] 03/20/2025 1:30 PM EDT Office Visit [facility] Cardiology [facility] - [facility] [address] [place] [phone] Michael Teran MD [address] [place] [address] [address] [place] [address] 08/09/2025 1:00 PM EST Ancillary Procedure [facility] Cardiology [facility] - [facility] [address] [facility] [address] [place] [phone] Health Maintenance Due Date Last Done Comments Zoster Vaccines (1 of 2) 01/11/2014 11/16/2013 RSV Immunization Adult Patients (1 - 1-dose 75+ series) 2014 COVID-19 Vaccine ( season) 2024 04/11/2022, 04/11/2022, 11/20/2021, Additional history exists Hypertension/CHF/CAD Annual BMP Blood Test 04/14/2025 04/14/2024, 04/21/2023 Depression Screening 05/01/2025 05/01/2024 Falls Risk Assessment 05/01/2025 05/01/2024 Medicare Annual Wellness Visit 05/01/2025 05/01/2024 Social Influencers of Health Screening 05/01/2025 05/01/2024 Cholesterol Screening (Lipid Panel) 05/03/2029 05/03/2024, 04/21/2023 DTaP,Tdap,and Td Vaccines (3 - Td or Tdap) 12/25/2030 12/25/2020, 02/23/2011 Osteoporosis Screening (Bone Density Screening) 02/26/2036 02/25/2021, 03/03/2018 Pneumococcal Vaccine: 50+ Years Completed 06/03/2015, 04/02/2010 Influenza Vaccine Completed 05/01/2024, , 03/10/2022, Additional history exists HIB Vaccines Aged Out No longer eligi ble based on patient's age to complete this topic HPV Vaccines Aged Out No longer eligi ble based on patient's age to complete this topic Hepatitis A Vaccines Aged Out No long er eligible based on patient's age to complete this topic Hepatitis B Vaccines Aged Out No long er eligible based on patient's age to complete this topic IPV Vaccines Aged Out No longer eligi ble based on patient's age to complete this topic MMR Vaccines Aged Out No longer eligi ble based on patient's age to complete this topic Meningococcal ACWY Vaccine Aged Out N o longer eligible based on patient's age to complete this topic Meningococcal B Vacine Aged Out No lo nger eligible based on patient's age to complete this topic RSV Immunization Patients Under 20 months Aged Out No longer eligible based on patient's age to complete this topic Varicella Vaccines Aged Out No longer eligible based on patient's age to complete this topic Medical Devices Implanted Type Area Mill Supervisor Device Identifier Shelf Expiration Date Model / Serial / Lot Medt-Card [place] Xt Dr Easton [id number] Implanted:06/14 by Ophelia Flores MD (Quantity not on file) Cardiac Pacemaker Left: Chest [employer] - CARDIAC RHYTH-CRD MARK XT DR EASTON [id number] / [id number] / Medt-Card [place] Xt Dr Easton [id number] Implanted:06/14 (Quantity not on file) Cardiac Pacemaker [employer] - CARDIAC RHYTH-[facility] MARK EASTON / [id number] / Procedures Procedure Name Priority Date/Time Associated Diagnosis Comments CARDIAC DEVICE CHECK- REMOTE- MURJ Routine 08/15/2024 10:56 AM EST CARDIAC DEVICE CHECK- IN CLINIC- MURJ Routine 08/08/2024 2:42 PM EST Encounter for adjustment or management of cardiac device CARDIAC DEVICE CHECK- REMOTE- MURJ Routine 08/02/2024 10:14 AM EST LIPID PANEL WITH REFLEX TO DIRECT LDL Routine 05/03/2024 9:06 AM EST Mixed hyperlipidemia ANNUAL BMP BLOOD TEST Routine 04/21/2023 DXA BONE DENSITY STUDY 1+ SITS AXIAL SKEL Routine 02/25/2021 2:13 PM EDT Other specified disorders of bone density and structure, unspecified site from Last 3 Months or Most Recently Relevant to Health Maintenance Results * Cardiac device check - Remote- MURJ (08/15/2024 10:56 AM EST) Only the most recent of2 resultswithin the time period is included. Date Time Interrogation Session [id number] CV DEVICE CHECK Type Interrogation Session Remote CV DEVICE CHECK Implantable Pulse Generator Mill Supervisor MDT CV DEVICE CHECK Implantable Pulse Generator Type IPG CV DEVICE CHECK Implantable Pulse Generator Model Mark XT MRI [id number] CV DEVICE CHECK Implantable Pulse Generator Serial Number [id number] CV DEVICE CHECK Implantable Pulse Generator Implant Date 20230630 CV DEVICE CHECK Battery Remaining Longevity 149.0 CV DEVICE CHECK Battery Voltage 3.040 CV D EVICE CHECK Battery COIL REPAIR TECHNICIAN Trigger 2.625 CV DEVICE CHECK Battery Status Middle of Service CV DEVICE CHECK Odell Statistic RA Percent Paced 52.29 CV DEVICE CHECK Odell Statistic RV Percent Paced 99.98 CV DEVICE CHECK Atrial Tachy Statistic AT/AF [place] Percent 0.40 CV DEVICE CHECK Lead Channel Sensing Intrinsic Amplitude 0.750 CV DEVICE CHECK Lead Channel Setting Sensing Sensitivity 0.15 CV DEVICE CHECK Lead Channel Impedance Value 418 CV DEVICE CHECK Lead Channel Pacing Threshold Amplitude 0.625 CV DEVICE CHECK Lead Channel Pacing Threshold Pulse Width 0.4 CV DEVICE CHECK Lead Channel RA Pacing Threshold Date 2024-08-15 CV DEVICE CHECK Lead Channel Setting Pacing Amplitude 1.500 CV DEVICE CHECK Lead Channel Setting Pacing Pulse Width 0.4 CV DEVICE CHECK Lead Channel Sensing Intrinsic Amplitude 9.875 CV DEVICE CHECK Lead Channel Setting Sensing Sensitivity 0.90 CV DEVICE CHECK Lead Channel Impedance Value 570 CV DEVICE CHECK Lead Channel Pacing Threshold Amplitude 1.125 CV DEVICE CHECK Lead Channel Pacing Threshold Pulse Width 0.4 CV DEVICE CHECK Lead Channel RV Pacing Threshold Date 2024-08-15 CV DEVICE CHECK Lead Channel Setting Pacing Amplitude 2.500 CV DEVICE CHECK Lead Channel Setting Pacing Pulse Width 0.4 CV DEVICE CHECK Odell Setting Mode (NBG Code) AAI<=>DDD CV DEVICE CHECK Odell Setting Lower Rate Limit 60 CV DEVICE CHECK Odell Setting AT Mode Switch Rate 171 CV DEVICE CHECK Odell Setting Maximum Tracking Rate 130 CV DEVICE CHECK Odell Setting Maximum Sensor Rate 130 CV DEVICE CHECK Odell Setting PAV Delay 180 CV DEVICE CHECK Odell Setting SARBJIT Delay 150 CV DEVICE CHECK Zone Setting Type Category AT/AF CV DEVICE CHECK Rate 171 CV DEVICE CHECK Therapies Some Rx Off CV DEVIC E CHECK Zone Setting Status Monitor CV DEVICE CHECK Zone ID 2 CV DEVICE CHECK Zone Setting Type Category VT CV DEVICE CHECK Rate 150 CV DEVICE CHECK Zone Setting Status ENABLED CV DEVICE CHECK Zone ID 6 CV DEVICE CHECK Date of Service 2024-11-10 CV DEVICE CHECK Anatomical Region Laterality Modality Device Interroga tion 08/15/2024 6:08 AM EST Impressions 08/15/2024 10:53 AM EST Atrial Fibrillation w/Controlled V Response * Stored EGMs are consistent with or suggestive of Atrial Fibrillation with Controlled Ventricular Response * AT/AF [place]: 0.4% * Longest episode: ongoing Narrative Procedure Note Paige Watkins PA - 08/15/2024 IMPRESSION: Atrial Fibrillation w/Controlled V Response * Stored EGMs are consistent with or suggestive of Atrial Fibrillationwith Controlled Ventricular Response * AT/AF [place]: 0.4% * Longest episode: ongoing Paige HANEY CV IMPLANTABLE CARDIAC DEVICE HI OCEDURES Final Result * CARDIAC DEVICE CHECK- IN CLINIC- [facility] (08/08/2024 2:42 PM EST) Date Time Interrogation Session [id number] CV DEVICE CHECK Implantable Pulse Generator Mill Supervisor MDT CV DEVICE CHECK Implantable Pulse Generator Type IPG CV DEVICE CHECK Implantable Pulse Generator Model [place] XT DR MRI CV DEVICE CHECK Implantable Pulse Generator Serial Number [id number] CV DEVICE CHECK Implantable Pulse Generator Implant Date 20230630 CV DEVICE CHECK Battery Status Middle of Service CV DEVICE CHECK Odell Statistic RA Percent Paced 46.00 CV DEVICE CHECK Odell Statistic RV Percent Paced 26.60 CV DEVICE CHECK Atrial Tachy Statistic AT/AF [place] Percent 1.10 CV DEVICE CHECK Lead Channel Sensing Intrinsic Amplitude 0.400 CV DEVICE CHECK Lead Channel Setting Sensing Sensitivity 0.15 CV DEVICE CHECK Lead Channel Impedance Value 418 CV DEVICE CHECK Lead Channel Pacing Threshold Amplitude 0.750 CV DEVICE CHECK Lead Channel Pacing Threshold Pulse Width 0.4 CV DEVICE CHECK Lead Channel RA Pacing Threshold Date 2024-08-08 CV DEVICE CHECK Lead Channel Setting Pacing Amplitude 1.500 CV DEVICE CHECK Lead Channel Setting Pacing Pulse Width 0.4 CV DEVICE CHECK Lead Channel Setting Sensing Sensitivity 0.90 CV DEVICE CHECK Lead Channel Impedance Value 589 CV DEVICE CHECK Lead Channel Pacing Threshold Amplitude 1.250 CV DEVICE CHECK Lead Channel Pacing Threshold Pulse Width 0.4 CV DEVICE CHECK Lead Channel RV Pacing Threshold Date 2024-08-08 CV DEVICE CHECK Lead Channel Setting Pacing Amplitude 2.500 CV DEVICE CHECK Lead Channel Setting Pacing Pulse Width 0.4 CV DEVICE CHECK Odell Setting Mode (NBG Code) AAI<=>DDD CV DEVICE CHECK Odell Setting Lower Rate Limit 60 CV DEVICE CHECK Odell Setting AT Mode Switch Rate 171 CV DEVICE CHECK Odell Setting Maximum Tracking Rate 130 CV DEVICE CHECK Odell Setting Maximum Sensor Rate 130 CV DEVICE CHECK Zone Setting Type Category AT/AF CV DEVICE CHECK Therapies All Rx Off CV DEVICE CHECK Zone Setting Status Monitor CV DEVICE CHECK Zone ID 2 CV DEVICE CHECK Zone Setting Type Category VT CV DEVICE CHECK Zone Setting Status Monitor CV DEVICE CHECK Zone ID 5 CV DEVICE CHECK Date of Service 2024-08-08 CV DEVICE CHECK Anatomical Region Laterality Modality Device Interroga tion 08/08/2024 Impressions 08/09/2024 8:46 PM EST Normal In-Office: With Events * Normal Device Function * Events or Alerts: 3 RONNA events noted since last remote; EGM's suggestive of AF- controlled, longest 3 hours 19 minutes 28 seconds, pt asymptomatic * Battery: MOS, 12.5 years * Sensing, impedance and thresholds reviewed and tested * Presenting Rhythm: -TIRE SHOP MANAGER 60's * Underlying Rhythm: No R Waves @ 30 bpm * Heart Rate Histograms reviewed * Pacing and Detection Parameters were evaluated Narrative Procedure Note Ophelia Flores MD - 08/09/2024 IMPRESSION: Normal In-Office: With Events * Normal Device Function * Events or Alerts: 3 RONNA events noted since last remote; EGM's suggestiveof AF- controlled, longest 3 hours 19 minutes 28 seconds, ptasymptomatic * Battery: MOS, 12.5 years * Sensing, impedance and thresholds reviewed and tested * Presenting Rhythm: -TIRE SHOP MANAGER 60's * Underlying Rhythm: No R Waves @ 30 bpm * Heart Rate Histograms reviewed * Pacing and Detection Parameters were evaluated us Order Referral Cardiovascular CV IMPLANTABLE CAR DIAC DEVICE PROCEDURES Final Result * Lipid panel with reflex to direct LDL (05/03/2024 9:06 AM EST) Cholesterol 161 0 - 200 mg/dL LAB CHEMISTRY METHOD 05/03/2024 10:22 AM [facility] Triglycerides 114 0 - 150 mg/dL LAB CHEMISTRY METHOD 05/03/2024 10:22 AM [facility] HDL 60 >=40 mg/dL LAB CHEMISTRY METHOD 05/03/2024 10:22 AM [facility] LDL Calculated 78 0 - 100 mg/dL LAB CHEMISTRY METHOD 05/03/2024 10:22 AM [facility] VLDL Cholesterol Zack 22.8 mg/dL LAB CHEMISTRY METHOD 05/03/2024 10:22 AM [facility] Non HDL Chol. (LDL+VLDL) 101 <145 mg/dL LAB CHEMISTRY METHOD 05/03/2024 10:22 AM [facility] Chol/HDL Ratio 2.7 0.0 - 4.4 LAB CHEMISTRY METHOD 05/03/2024 10:22 AM [facility] Blood Venous blood specimen / Unknown Venipuncture / Unknown 05/03/2024 9:06 AM EST 05/03/2024 9:06 AM EST Sheryl HANEY LAB BLOOD ORDERABLES Final Re sult [facility] [address] [place] [address], * Annual BMP Blood Test (04/21/2023) Annual BMP Blood Test abstracted Historical Provider MD HEALTH MAINTENANCE Final Result * DXA BONE DENSITY STUDY 1+ SITS AXIAL SKEL (02/25/2021 2:13 PM EDT) Anatomical Region Laterality Modality Bone Densitometr y 12/03/2020 11:5 7 PM EDT Narrative 02/25/2021 4:02 PM EDT BONE DENSITY (DEXA) ? Lumbar Spine T-score is 0.8. ?? (SD relative to 20-29 y/o adult) Z-score is 3.6. ??(SD relative to age matched peers) This is considered normal by WHO criteria. Left Hip T-score is -0.8. Z-score is 1.6. This is considered normal by WHO criteria. There is mild dextroscoliosis of the lumbar spine. IMPRESSION: This patient is considered to have normal bone density by WHO criteria. The [facility] Department of Internal Medicine recommends using National Osteoporosis Foundation (NOF) guidelines in treatment decisions related to osteoporosis. NOF guidelines suggest considering treatment for postmenopausal women and men aged 50 or older presenting with the following: History of hip or vertebral fracture. T-score = -2.5 (DXA) at the femoral neck, total hip, or spine, after appropriate evaluation to exclude secondary causes. Low bone mass (T-score between -1.0 and -2.5 at the femoral neck or spine) AND a 10-year probability of a hip fracture = 3% OR a 10-year probability of a major osteoporosis-related fracture = 20% based on the [place]-adapted WHO algorithm Please note that all treatment decisions require clinical judgment and consideration of individual patient factors, including patient preferences, co-morbidities, previous drug use, risk factors not captured in the FRAX model (e.g., frailty, falls, vitamin D deficiency, increased bone turnover, interval significant decline in bone density) and possible under- or over-estimation of fracture risk by FRAX. Optional alternative screening schedule based on olivia White., [facility] July 02, 2011 for patients with osteopenia (based on hip BMD T-score) is as follows: * ??advanced osteopenia (T scores -2.00 to -2.49), BMD testing every year * ??moderate osteopenia (T scores -1.50 to -1.99), BMD testing every 5 years mild osteopenia or normal BMD (T scores -1.50 and higher), BMD testing every 15 years Procedure Note Robyn Haddad MD - 06/02/2022 BONE DENSITY (DEXA) Lumbar Spine T-score is 0.8. (SD relative to 20-29 y/o adult) Z-score is 3.6. (SD relative to age matched peers) This is considered normal by WHO criteria. Left Hip T-score is -0.8. Z-score is 1.6. This is considered normal by WHO criteria. There is mild dextroscoliosis of the lumbar spine. IMPRESSION: This patient is considered to have normal bone density by WHO criteria. The [facility] Department of Internal Medicine recommendsusing National Osteoporosis Foundation (NOF) guidelines in treatment decisions related toosteoporosis. NOF guidelines suggest considering treatment for postmenopausal women and menaged 50 or older presenting with the following: History of hip or vertebral fracture. T-score = -2.5 (DXA) at the femoral neck, total hip, or spine, afterappropriate evaluation to exclude secondary causes. Low bone mass (T-score between -1.0 and -2.5 at the femoral neck or spine)AND a 10-year probability of a hip fracture = 3% OR a 10-year probability of a majorosteoporosis-related fracture = 20% based on the [place]-adapted WHO algorithm Please note that all treatment decisions require clinical judgment andconsideration of individual patient factors, including patient preferences, co- morbidities,previous drug use, risk factors not captured in the FRAX model (e.g., frailty, falls, vitaminD deficiency, increased bone turnover, interval significant decline in bone density) andpossible under- or over-estimation of fracture risk by FRAX. Optional alternative screening schedule based on olivia White., NEJMJanuary 2011 for patients with osteopenia (based on hip BMD T-score) is as follows: * advanced osteopenia (T scores -2.00 to -2.49), BMD testing every year * moderate osteopenia (T scores -1.50 to -1.99), BMD testing every 5years mild osteopenia or normal BMD (T scores -1.50 and higher), BMD testingevery 15 years Sheryl HANEY IMG DXA PROCEDURES Final Resu lt from Last 3 Months or Most Recently Relevant to Health Maintenance Insurance [employer] Care Teams Obgyn Specialist Relationship Specialty Start Date End Date Krissy Guardado MD [address], [place] [id number] PCP - General Internal Medicine 02/25/15
== END 2024-09-14 15:05 | disposition home or self-care (01) ==
LOC: HO.HSMS 14:21
PROVIDERS: PCP Internal Medicine; Visit Provider Nurse Practitioner Family
DX: Z86.73 Personal history of transient ischemic attack (TIA), and cerebral infarction without residual deficits (principal); I48.91 Unspecified atrial fibrillation; R29.818 Other symptoms and signs involving the nervous system
CPT/HCPCS: 99214

== ENCOUNTER → 2024-09-14 14:20 | Outpatient (BNVA) | payer MEDICARE, SELFPAY | PROVIDERS: PCP Internal Medicine; Visit Provider Nurse Practitioner Family | DX: I48.91 Unspecified atrial fibrillation (principal); R29.818 Other symptoms and signs involving the nervous system; Z86.73 Personal history of transient ischemic attack (TIA), and cerebral infarction without residual deficits | CPT/HCPCS: 99212 ==